=== PATIENT | male | born 1995 | race Two or more races ===

== ENCOUNTER 2018-04-12 00:07 | Emergency (ER) | payer SELFPAY ==
--- NOTE | 2018-04-12 00:33 | ED PDOC ---
HPI: Psych/Substance Abuse Time Seen by Provider: 04/12/18 00:15 Chief Complaint (Nursing): Alcohol Ingestion Chief Complaint (Provider): alcohol ingestion History Per: Patient (23 y/o male accompanied by friend for alcohol intoxication and vomiting. Patient denies any complaints. No falls/head trauma noted by him or friend. Admits alcohol intake. ) Past Medical History Reviewed: Historical Data, Nursing Documentation, Vital Signs Vital Signs: Last Vital Signs Temp 98.7 F 04/12/18 00:12 Pulse 95 H 04/12/18 00:12 Resp 16 04/12/18 00:12 BP 151/96 H 04/12/18 00:12 Pulse Ox 98 04/12/18 00:12 - Family History Family History: States: No Known Family Hx - Allergies Allergies/Adverse Reactions: Allergies Allergy/AdvReac Type Severity Reaction Status Date / Time Penicillins Allergy RASH Verified 04/12/18 00:12 Review of Systems ROS Statement: Except As Marked, All Systems Reviewed And Found Negative Physical Exam - Reviewed Nursing Documentation Reviewed: Yes Vital Signs Reviewed: Yes - Physical Exam Appears: Positive for: Well, Non-toxic, No Acute Distress Head Exam: Positive for: ATRAUMATIC, NORMAL INSPECTION, NORMOCEPHALIC Skin: Positive for: Normal Color, Warm, DRY Eye Exam: Positive for: EOMI, Normal appearance, PERRL ENT: Positive for: Normal ENT Inspection Neck: Positive for: Normal, Painless ROM Cardiovascular/Chest: Positive for: Regular Rate, Rhythm Respiratory: Positive for: CNT, Normal Breath Sounds Gastrointestinal/Abdominal: Positive for: Normal Exam, Soft Back: Positive for: Normal Inspection Extremity: Positive for: Normal ROM Neurologic/Psych: Positive for: Alert, Oriented - ECG O2 Sat by Pulse Oximetry: 98 - Progress ED Course And Treament: Zofran 4 mg ODT PATIENT OBSERVED IN ED WITH IMPROVED SOBRIETY. Disposition - Clinical Impression Clinical Impression: Alcohol ingestion, Alcoholic gastritis - Patient ED Disposition Is Patient to be Admitted: No - Disposition Disposition: Routine/Home Disposition Time: 05:58 Condition: FAIR Instructions: Gastritis (DC), Effects of Alcohol on Your Health, Alcohol Poisoning (DC)
[2018-04-12 04:48] VITALS: O2SAT 98
[2018-04-12 06:44] VITALS: RESP 18; TEMP 98.4
--- NOTE | 2018-04-12 08:31 | ED PDOC ---
- ECG O2 Sat by Pulse Oximetry: 98 - Progress Re-evaluation Time: 08:30 Condition: Improved (Awake alert oriented x 3 no vomiting) Disposition - Clinical Impression Clinical Impression: Alcohol ingestion, Alcoholic gastritis - POA Present On Arrival: None - Disposition Referrals: [facility] [Outside] Disposition: Routine/Home Disposition Time: 08:30 Condition: FAIR Prescriptions: Famotidine [Pepcid] 20 mg PO Q12 #20 tab Instructions: Gastritis (DC), Effects of Alcohol on Your Health, Alcohol Poisoning (DC)
[2018-04-12 09:30] VITALS: BP 107/61; PULSE 69
== END 2018-04-12 08:50 | disposition home or self-care (01) ==
LOC: H.ER 00:07
DX: F10.129 Alcohol abuse with intoxication, unspecified (principal); K29.20 Alcoholic gastritis without bleeding; Z88.0 Allergy status to penicillin